=== PATIENT | female | born 1975 | race Hispanic/Latino ===

== ENCOUNTER 2021-11-06 18:37 | Emergency (ER) | payer SELFPAY ==
[2021-11-06] MEDS ORDERED: MECLIZINE HCL 12.5 MG TAB PO ONE (19:15)
[2021-11-06] MEDS ORDERED: ONDANSETRON HCL 4 MG ORAL DISINTEGRATING TAB PO NR (19:15)
[2021-11-06 19:32] LABS: BASOPHILS % 0.4 % (0.0-1.0); EOSINOPHILS # (AUTO) 0.3 (0.0-0.4); EOSINOPHILS % 3.4 % (0.0-6.0); HEMATOCRIT 38.3 % (34.2-44.1); HEMOGLOBIN 12.1 g/dL (12.0-16.0); LYMPHOCYTES % 25.4 % (18.0-39.1); MEAN CORPUSCULAR HEMOGLOBIN 25.3 pg (28-32); MEAN CORPUSCULAR HGB CONC 31.6 g/dL (31-35); MONOCYTES # (AUTO) 0.7 (0.2-0.8); MONOCYTES % 8.4 % (4.4-11.3); NEUTROPHILS # (AUTO) 4.8 (2.1-6.9); PLATELET COUNT 291 x10e3/uL (140-360); RED BLOOD COUNT 4.79 x10e6/uL (3.6-5.1); RED CELL DISTRIBUTION WIDTH 14.5 % (11.7-14.4)
[2021-11-06 19:46] LABS: ALBUMIN 3.9 g/dL (3.5-5.0); ALBUMIN/GLOBULIN RATIO 0.9 (0.8-2.0); ANION GAP 16.8 mmol/L (8-16); CALCIUM 9.4 mg/dL (8.4-10.2); CREATININE, SERUM 0.77 mg/dL (0.57-1.11); POTASSIUM 3.8 mmol/L (3.5-5.1)
[2021-11-06 20:03] LABS: THYROID STIMULATING HORMONE 1.777 uIU/mL (0.350-4.940)
[2021-11-06] MEDS ORDERED: MECLIZINE HCL12.5 MG PO (20:22)
== END 2021-11-06 22:33 | disposition home or self-care (01) ==
LOC: ER 19:38
DX: R00.2 Palpitations (principal); R42 Dizziness and giddiness; H92.02 Otalgia, left ear; M43.22 Fusion of spine, cervical region
CPT/HCPCS: 36415; 71046; 80053; 84443; 84484; 85025; 93005; 99284; J8597; Q0162